=== PATIENT | male | born 1955 | race Caucasian/White ===

== ENCOUNTER 2020-03-14 14:59 | Emergency (ER) | payer OTHER ==
[~2020-03-14] VITALS: Ht 170.2 cm; Wt 100.0 kg
--- NOTE | 2020-03-14 15:20 | NUR ---
ASSUMED CARE OF PT AT THIS TIME FROM [facility]. AMBULATORY TO ROOM WITH STEADY GAIT WITH OWN CANE. 65 Y/O M "CRAMPING AND PAIN IN RIGHT LEG AND CALF, PAIN WORSE WITH WALKING AND IT SORT OF FEELS WARM, DEFINITELY SWOLLEN, CALLED TELE DOC AND THEY TOLD ME TO COME IN AND GET AN ULTRASOUND TO ROLE OUT A BLOOD CLOT." RATES PAIN 5/10 WITH AMBULATION, DENIES PAIN WHILE RESTING. CMS INTACT. +RLE CALF SWELLING, +WARMTH. PEDAL PULSE NORMAL AND STRONG. RLE ELEVATED PER PT REQUEST FOR COMFORT. FRANCIS PIPER AT BEDSIDE FOR EVALUATION. AWAITING ORDERS. CONT PULSE OX, BP MONITOR IN PLACE. VSS. CALL LIGHT IN REACH. FALL PRECAUTIONS IN PLACE. A&OX4. ASSESSMENT COMPLETED. SPOUSE AT BEDSIDE.
--- NOTE | 2020-03-14 15:37 | NUR ---
US AT BEDSIDE
--- NOTE | 2020-03-14 16:05 | NUR ---
PT UP FOR RECHECK
--- NOTE | 2020-03-14 16:28 | NUR ---
DR. EVANS AT BEDSIDE FOR RECHECK
[2020-03-14 17:07] VITALS: BP 158/86
== END 2020-03-14 17:10 | disposition home or self-care (01) ==
LOC: ED 16:15
DX: I82.421 Acute embolism and thrombosis of right iliac vein (principal); I82.411 Acute embolism and thrombosis of right femoral vein; I82.431 Acute embolism and thrombosis of right popliteal vein; I82.441 Acute embolism and thrombosis of right tibial vein; M79.661 Pain in right lower leg; Z86.718 Personal history of other venous thrombosis and embolism
CPT/HCPCS: 99284